=== PATIENT | male | born 1990 | race African-American/Black ===

== ENCOUNTER 2017-01-04 17:02 | Emergency (ER) | payer OTHER ==
[~2017-01-04] VITALS: Ht 177.8 cm; Wt 79.4 kg
[~2017-01-04 17:02] MED LIST: BACITRACIN15 GM TOPIC; BACTRIM-DS1 EA ORAL; HYDROCORTISO1 APPLIC TOPIC; IBUPROFEN600 MG ORAL; KEFLEX500 MG ORAL; MOTRIN600 MG PO; NKM; NORCO 5-325 TA1 EACH ORAL; VIBRAMYCIN100 MG ORAL; ZENATANE40 MG PO
[2017-01-04] MEDS ORDERED: Ketorolac 30mg Inj IM ONE (17:45)
[2017-01-04] MEDS ORDERED: Methocarbamol 750mg tab ORAL ONE (17:45)
[2017-01-04 18:08] VITALS: BP 115/69
[2017-01-04] MEDS ORDERED: ROBAXIN-750750 MG PO (19:17)
[2017-01-04] MEDS ORDERED: IBUPROFEN600 MG ORAL (19:17)
[2017-01-04 19:29] VITALS: BP 121/71
[2017-01-04 19:30] VITALS: BP 121/71
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
== END 2017-01-04 19:30 | disposition home or self-care (01) ==
LOC: EMR 18:13
DX: S16.1XXA Strain of muscle, fascia and tendon at neck level, initial encounter (principal); V43.52XA Car driver injured in collision with other type car in traffic accident, initial encounter; Y92.9 Unspecified place or not applicable; Z88.0 Allergy status to penicillin
CPT/HCPCS: 72020; 72040; 96372; 99284; J1885